=== PATIENT | male | born 1970 | race Caucasian/White ===

== ENCOUNTER 2016-11-12 18:51 | Emergency (ER) | payer BC ==
[2016-11-12 18:57] VITALS: BP 153/96; PULSE 80; TEMP 98.7; BMI 28.5
--- NOTE | 2016-11-12 19:39 | PDOC ---
History of Present Illness - General Chief Complaint: Pain Stated Complaint: LT ELBOW INJURY Time Seen by Provider: 11/12/16 19:32 History Source: Patient Exam Limitations: No Limitations - History of Present Illness Initial Comments: CHIEF COMPLAINT: 46 y/o afebrile male with HTN secondary to only having 1 kidney c/o left elbow pain for the past 3 days. 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 He states a few days ago his left elbow became red and swollen. Last night he woke up from the pain and felt sweaty. He never took a temperature but is afebrile in the ER. He denies streaking, warmth to affected joint. Vital signs on arrival are notable for BP of 153/96. REVIEW OF SYSTEMS: GENERAL/CONSTITUTIONAL: Subjective fever/chills. No weakness. No weight change. HEAD, EYES, EARS, NOSE AND THROAT: No change in vision. No ear pain or discharge. No sore throat. MUSCULOSKELETAL: +left elbow pain and swelling. No neck or back pain. SKIN: No rash or easy bruising. NEUROLOGIC: No headache, vertigo, loss of consciousness, or loss of sensation. PHYSICAL EXAM: VITAL_SIGNS: within normal limits GENERAL_APPEARANCE: alert, cooperative, no obvious discomfort. MENTAL_STATUS: speech clear, oriented X 3, responds appropriately to questions. NEURO: motor intact and sensory intact in injured extremity. EXTREMITIES: Moderate swelling to left elbow with mild erythema. No warmth to affected joint. Pt has full ROM of left elbow but pain with palpation. Left elbow is hard without fluctuance and no streaking noted. SKIN: warm, dry, good color. Past History - Past Medical History Allergies/Adverse Reactions: Allergies Allergy/AdvReac Type Severity Reaction Status Date / Time No Known Allergies Allergy Verified 11/12/16 18:55 Home Medications: Ambulatory Orders Ibuprofen [Motrin -] 800 mg PO Q6H #30 tablet 03/05/16 Tramadol HCl 50 mg PO Q6H #20 tablet MDD 200mg 03/05/16 Amox-Tr/K Cl [Augmentin - 875Mg Tablet] 1 tab PO BID #14 tablet 11/12/16 Prednisone [Deltasone -] 60 mg PO DAILY #12 tablet 11/12/16 - Psycho/Social/Smoking Cessation Hx Anxiety: No Suicidal Ideation: No Smoking Status: Yes Smoking History: Current some day smoker Have you smoked in the past 12 months: Yes Number of Cigarettes Smoked Daily: 1 Information on smoking cessation initiated: No Hx Alcohol Use: No Drug/Substance Use Hx: No Substance Use Type: Alcohol *Physical Exam - Vital Signs Last Vital Signs Temp Pulse Resp BP Pulse Ox 98.7 F 80 18 153/96 100 11/12/16 18:55 11/12/16 18:55 11/12/16 18:55 11/12/16 18:55 11/12/16 18:55 Medical Decision Making - Medical Decision Making A/P: 46 y/o male with left olecranon bursitis. Plan is as follows: 1. PO augmentin 2. PO prednisone Will discharge to home with rx for augmentin and prednisone. Suggested he ice affected area and avoid use until symptoms improve. Instructed him to return to the ER with any worsening or concerning symptoms and continue taking advil for pain. The patient verbalizes understanding of all instructions, has no further questions and is awaiting discharge. *DC/Admit/Observation/Transfer Diagnosis at time of Disposition: Olecranon bursitis of left elbow - Discharge Dispostion Disposition: HOME Condition at time of disposition: Good - Prescriptions Prescriptions: Amox-Tr/K Cl [Augmentin - 875Mg Tablet] 1 tab PO BID #14 tablet Prednisone [Deltasone -] 60 mg PO DAILY #12 tablet - Patient Instructions Printed Discharge Instructions: DI for Elbow Bursitis Additional Instructions: Discharge Instructions: -Take medications as prescribed. -Take Advil or Motrin with food for pain -Ice affected area -Do not use your arm/elbow until symptoms improve -Return to the ER with any worsening or concerning symptoms
[2016-11-12] MEDS ORDERED: predniSONE 20 MG TABLET (UD) PO ONE (20:22)
[2016-11-12] MEDS ORDERED: AMOX TR/POT CLAV 875MG/125MG TABLETS (FP) PO ONE (20:22)
[2016-11-12] MEDS ORDERED: AMOX TR/POT CLAV 875MG/125MG TABLETS (FP) ONE (20:28)
[2016-11-12] MEDS ORDERED: predniSONE 20 MG TABLET (UD) ONE (20:28)
== END 2016-11-12 20:25 | disposition home or self-care (01) ==
LOC: JERFT 18:51
DX: M70.22 Olecranon bursitis, left elbow (principal); F17.210 Nicotine dependence, cigarettes, uncomplicated
CPT/HCPCS: 99281-25

== ENCOUNTER 2017-02-20 08:09 | Emergency (ER) | payer BC ==
[2017-02-20 08:20] VITALS: BP 156/87; PULSE 86; TEMP 98.5; BMI 29.2
--- NOTE | 2017-02-20 08:47 | PDOC ---
History of Present Illness - General Chief Complaint: Injury Stated Complaint: INJURY Time Seen by Provider: 02/20/17 08:38 History Source: Patient Exam Limitations: No Limitations - History of Present Illness Initial Comments: 02/20/17 08:46 CHIEF COMPLAINT: Swelling to right fifth finger HISTORY OF PRESENT ILLNESS: Patient is a 46-year-old male, history of gout and hypertension, presents emergency department for evaluation of significant swelling, pain to right fifth finger. Patient reports that he works in construction and is unsure if there is a foreign body. He is unsure if he sustained an injury to the finger. No deformity. Symptoms started on tuesday. Severity: reports: moderate Upper Extremity Pain Location: right: 5th finger Method of Injury: reports: unknown Modifying Factors: improves with: None Extremity Pain Location - Extremity Pain Location Extremity Pain Locations: right: 5th finger Past History - Past Medical History Allergies/Adverse Reactions: Allergies Allergy/AdvReac Type Severity Reaction Status Date / Time No Known Allergies Allergy Verified 02/20/17 08:14 Home Medications: Ambulatory Orders Amox-Tr/K Cl [Augmentin - 875Mg Tablet] 1 tab PO BID #14 tablet 02/20/17 Bethanechol Chloride [Urecholine] 5 mg PO DAILY 02/20/17 Oxycodone HCl/Acetaminophen [Percocet 5-325 mg Tablet] 1 - 2 tab PO Q4H #20 tablet MDD 10 02/20/17 HTN: Yes Other medical history: Gout - Immunization History Immunization Up to Date: Yes - Psycho/Social/Smoking Cessation Hx Anxiety: No Suicidal Ideation: No Smoking Status: Yes Smoking History: Never smoked Have you smoked in the past 12 months: Yes Number of Cigarettes Smoked Daily: 1 Information on smoking cessation initiated: No Hx Alcohol Use: No Drug/Substance Use Hx: No Substance Use Type: Alcohol Review of Systems - Review of Systems Constitutional: No: Symptoms Reported Respiratory: No: Symptoms reported Cardiac (ROS): No: Symptoms Reported Musculoskeletal: Yes: Joint Pain, Joint Swelling Integumentary: Yes: Erythema, Other (swelling to the PIP right fifth finger. ) . No: Bruising Neurological: No: Symptoms reported, Paresthesia, Tingling, Tremors Hematologic/Lymphatic: No: Symptoms Reported All Other Systems: Reviewed and Negative *Physical Exam - Vital Signs Last Vital Signs Temp Pulse Resp BP Pulse Ox 98.5 F 86 16 156/87 96 02/20/17 08:15 02/20/17 08:15 02/20/17 08:15 02/20/17 08:15 02/20/17 08:15 - Physical Exam General Appearance: Yes: Appropriately Dressed. No: Apparent Distress Neck: negative: Tender lateral, Tender midline Respiratory/Chest: positive: Lungs Clear, Normal Breath Sounds Extremity: positive: Swelling, Erythema, Inflammation. negative: Normal Range of Motion Integumentary: positive: Swelling, Other (right fifth finger, swelling worse around the PIP. ). negative: Erythema, Ecchymosis, Bruising Neurologic: positive: Alert, Normal Mood/Affect ED Treatment Course - RADIOLOGY Radiology Studies Ordered: Category Date Time Status FINGER(S) RIGHT [RAD] Stat Radiology 02/20/17 08:41 Ordered Medical Decision Making - Medical Decision Making 02/20/17 09:21 A/P: Patient here for evaluation of swelling to right fifth finger, questionable foreign body, versus injury versus gout, versus infection. Patient sent to x-ray to rule out foreign body versus fracture. X-ray demonstrates an irregularity around the PIP of the right fifth finger although was read as normal. We will splint the finger, start patient on antibiotics, follow-up with Dr. Ceballos. There is no foreign body noted on x-ray. Splint placed on in emergency department. *DC/Admit/Observation/Transfer Diagnosis at time of Disposition: Finger swelling - Discharge Dispostion Disposition: HOME Condition at time of disposition: Stable Admit: No - Prescriptions Prescriptions: Amox-Tr/K Cl [Augmentin - 875Mg Tablet] 1 tab PO BID #14 tablet Oxycodone HCl/Acetaminophen [Percocet 5-325 mg Tablet] 1 - 2 tab PO Q4H #20 tablet MDD 10 - Referrals Referrals: STAFF,NOT ON [Primary Care Provider] - Jamil Ceballos MD [Staff Physician] -
== END 2017-02-20 09:30 | disposition home or self-care (01) ==
LOC: JER 08:09 → JERFT 08:09
PROC: 2W3JX1Z Immobilization of Right Finger using Splint (ICD-10-PCS; principal; 2017-02-20)
DX: M79.89 Other specified soft tissue disorders (principal); I10 Essential (primary) hypertension; M10.9 Gout, unspecified
CPT/HCPCS: 73140-TC-RT; 99281-25